=== PATIENT | female | born 1990 | race Caucasian/White ===

== ENCOUNTER 2021-10-21 12:13 | Emergency (ER) | payer OTHER ==
[~2021-10-21] VITALS: Ht 172.7 cm; Wt 68.0 kg
== END 2021-10-21 16:46 | disposition left against medical advice (07) ==
LOC: ED 12:13
DX: R11.10 Vomiting, unspecified (principal); R42 Dizziness and giddiness; R10.9 Unspecified abdominal pain; Z53.21 Procedure and treatment not carried out due to patient leaving prior to being seen by health care provider